=== PATIENT | male | born 1955 | race Caucasian/White ===

== ENCOUNTER 2019-08-07 11:18 | Emergency (ER) | payer BC ==
[~2019-08-07] VITALS: Ht 177.8 cm; Wt 150.0 kg
[~2019-08-07 11:18] MED LIST: AZIT-63 PO; CHOL50004 PO; FURO-150 PO; GLUC-219 PO; GLUC1CAP33 PO; MELA1TAB11 PO; SPIR25TA5 PO; UBID10CA4 PO
[2019-08-07 12:00] LABS: BASOPHILS # (AUTO) 0.1 X10'3 (0-0.2); BASOPHILS % (AUTO) 0.8 % (0-1); EOSINOPHILS # (AUTO) 0.3 X10'3 (0-0.9); EOSINOPHILS % (AUTO) 4.2 % (0-6); HEMATOCRIT 43.1 % (42.0-52.0); HEMOGLOBIN 14.9 g/dl (14.0-17.9); LYMPHOCYTES # (AUTO) 0.9 X10'3 (1.1-4.8); LYMPHOCYTES % (AUTO) 14.8 % (21-51); MEAN CORPUSCULAR HEMOGLOBIN 32.5 PG (27.0-31.0); MEAN CORPUSCULAR HGB CONC 34.5 g/dL (33.0-36.5); MEAN CORPUSCULAR VOLUME 94.3 FL (78-98); MEAN PLATELET VOLUME 8.6 FL (7.4-10.4); MONOCYTES # (AUTO) 0.9 X10'3 (0-0.9); MONOCYTES % (AUTO) 15.4 % (2-12); NEUTROPHILS % (AUTO) 64.8 % (42-75); PLATELET COUNT 141 X10'3 (140-440); RED BLOOD COUNT 4.57 X10'6 (4.70-6.10); WHITE BLOOD COUNT 6.1 X10'3 (4.5-11.0)
[2019-08-07 12:14] LABS: ALANINE AMINOTRANSFERASE 54 U/L (12-78); ALBUMIN 3.5 G/DL (3.4-5.0); ALKALINE PHOSPHATASE 189 IU/L (46-116); ANION GAP 8 (8-16); ASPARTATE AMINO TRANSFERASE 51 U/L (10-37); BILIRUBIN,TOTAL 1.4 MG/DL (0.1-1.0); BLOOD UREA NITROGEN 15 MG/DL (7-18); BUN/CREATININE RATIO 14.3 (5.4-32.0); CALCIUM 8.6 MG/DL (8.5-10.1); CHLORIDE 108 MMOL/L (99-107); CREATININE 1.05 MG/DL (0.60-1.10); GLUCOSE 139 MG/DL (70-104); POTASSIUM 3.8 MMOL/L (3.5-5.1); SODIUM 143 MMOL/L (135-145); TOTAL CARBON DIOXIDE 26.8 MMOL/L (24-32); TOTAL PROTEIN 6.9 G/DL (6.4-8.2); eGFR 71 ML/MIN
[2019-08-07] MEDS ORDERED: chlorthalidone 25mg tablet PO STA (12:17)
--- NOTE | 2019-08-07 12:19 | NUR ---
solar installer technician at bedside.
[2019-08-07] MEDS ORDERED: atenolol 50mg tablet PO ONE (12:20)
[2019-08-07 12:25] LABS: PLATELET ESTIMATE NORMAL; TOTAL CELLS COUNTED 100
[2019-08-07] MEDS ORDERED: CEPH500C5 PO (13:02)
[2019-08-07 13:43] VITALS: BP 149/91
== END 2019-08-07 13:30 | disposition home or self-care (01) ==
LOC: ER 11:19
DX: L03.116 Cellulitis of left lower limb (principal); M79.89 Other specified soft tissue disorders; I10 Essential (primary) hypertension; M19.90 Unspecified osteoarthritis, unspecified site; F17.200 Nicotine dependence, unspecified, uncomplicated; Z88.8 Allergy status to other drugs, medicaments and biological substances; Z79.2 Long term (current) use of antibiotics; Z79.899 Other long term (current) drug therapy
CPT/HCPCS: 36415; 80053; 84145; 85025; 93005; 93971; 99285

== ENCOUNTER 2022-03-12 11:13 | Inpatient (IN) | payer BC ==
[2022-03-07 12:24] LABS: BASOPHILS % (AUTO) 1.2 % (0-1); EOSINOPHILS # (AUTO) 0.1 X10'3 (0-0.9); EOSINOPHILS % (AUTO) 2.8 % (0-6); LYMPHOCYTES # (AUTO) 0.7 X10'3 (1.1-4.8); LYMPHOCYTES % (AUTO) 16.3 % (21-51); MEAN CORPUSCULAR HEMOGLOBIN 32.2 PG (27.0-31.0); MEAN CORPUSCULAR HGB CONC 34.2 g/dL (33.0-36.5); MEAN CORPUSCULAR VOLUME 94.1 FL (78-98); MEAN PLATELET VOLUME 8.6 FL (7.4-10.4); MONOCYTES # (AUTO) 0.5 X10'3 (0-0.9); MONOCYTES % (AUTO) 12.1 % (2-12); NEUTROPHILS # (AUTO) 2.7 X10'3 (1.8-7.7); NEUTROPHILS % (AUTO) 67.6 % (42-75); PRE OP HEMATOCRIT 43.5 % (42.0-52.0); PRE OP HEMOGLOBIN 14.9 g/dL (14.0-17.9); PRE OP PLATELET COUNT 143 X10'3 (140-440); RED BLOOD COUNT 4.62 X10'6 (4.70-6.10)
[2022-03-07 12:40] LABS: ALBUMIN 3.6 G/DL (3.4-5.0); ALBUMIN/GLOBULIN RATIO 1.1 (1.1-1.5); ALKALINE PHOSPHATASE 137 IU/L (46-116); BLOOD UREA NITROGEN 18 MG/DL (7-18); BUN/CREATININE RATIO 18.9 (5.4-32.0); CALCIUM 8.9 MG/DL (8.5-10.1); CHLORIDE 105 MMOL/L (99-107); CREATININE 0.95 MG/DL (0.60-1.10); PRE OP ALT 38 U/L (30-65); PRE OP ANION GAP 10 (8-16); PRE OP AST 40 U/L (10-37); PRE OP BILIRUB, TOTAL 1.6 MG/DL (0.0-1.0); PRE OP GLUCOSE 105 MG/DL (70-104); PRE OP POTASSIUM 3.8 MMOL/L (3.4-5.1); PRE OP SODIUM 141 MMOL/L (135-145); TOTAL CARBON DIOXIDE 26.2 MMOL/L (24-32); TOTAL PROTEIN 6.8 G/DL (6.4-8.2); eGFR 79 ML/MIN
[~2022-03-12] VITALS: Ht 177.8 cm; Wt 125.0 kg
[2022-03-12] VITALS (20 sets, daily range): BP systolic 110–145; BP diastolic 61–92
[~2022-03-12 11:13] MED LIST changes: +ATEN1TAB5 PO; -AZIT-63 PO; +AZIT-83 PO; +DOCUMENT DATE & TIME OF BETA-BLOCKER PO ONE; +POTA8CAP20 PO; +ceFAZolin inj. 2,000 MG in dextrose 5%-water 100 ML IV ONE; +famotidine 20mg tablet PO ONE; +ringers solution, lacted 1,000 ML IV SCH; +tranexamic acid inj. 1,000 MG in normal saline IV soln 100ML IV ONE; +vancomycin 1,500 MG in NS 300ml IV soln IV ONE
--- NOTE | 2022-03-12 12:00 | NUR ---
CSM: PULSES PRESENT. PATIENT USED THE MUPIROCIN CREAM ORDERED BUT DID NOT WATCH THE VIDEO. EDUCATED PATIENT ON THE USE OF THE INCENTIVE AND ITS IMPORTANCE.
[2022-03-12] MEDS ORDERED: sevoflurane 250ml liquid IH ONE (14:01)
[2022-03-12] MEDS ORDERED: FENTANYL CITRATE/PF 50 MCG/1 ML VIAL ONE (14:04)
[2022-03-12] MEDS ORDERED: MIDAZolam 1 MG/ML 5ML VIAL ONE (14:04)
[2022-03-12] MEDS ORDERED: ROPIVAcaine 0.5% (5mg/ml) 30ml vial ONE (14:07)
[2022-03-12] MEDS ORDERED: propofol inj 20 ML IV ONE (14:07)
[2022-03-12] MEDS ORDERED: vancomycin 1,000mg inj ONE (14:26)
[2022-03-12] MEDS ORDERED: ringers solution, lacted 1,000 ML IV SCH (15:55)
[2022-03-12] MEDS ORDERED: meperidine/PF 25mg/ml syringe IV PRN ×3 (15:55)
[2022-03-12] MEDS ORDERED: ondansetron/PF 4mg/2ml inj IV PRN ×2 (15:55→17:15)
[2022-03-12] MEDS ORDERED: morphine 4 MG/ML inj SYRINge IV PRN (15:55)
[2022-03-12] MEDS ORDERED: morphine 2 MG/ML inj. syringe IV PRN (15:55)
[2022-03-12] MEDS ORDERED: ROPIVAcaine 0.2% (10 MG/5 ML) BOLUS INJECTION INTERSCALE PRN (15:55)
[2022-03-12] MEDS ORDERED: proCHLORperazine 10 MG/2 ml inj IV PRN (15:55)
[2022-03-12] MEDS ORDERED: ROPIVAcaine 0.2%/PF PUMP/bolus 545 ML INTERSCALE SCH (16:30)
--- NOTE | 2022-03-12 16:58 | NUR ---
Received from OR via BED, accompanied by Anesthesiologist and report given by CHIDI Anesthesiologist. PATIENT WAKING UP, DENIES PAIN, V/S WNL, SCD ON, 20G TO LEFT FOREARM, RIGHT SHOULDER DRESSING C/D/I with POWDER PACK AND ARM SLING. ON Q PUMP CATHETER DRESSING C/D/I. Addendum: 03/12/22 at 1720 by Miguelito Lew RN Amended: Links added.
[2022-03-12] MEDS ORDERED: diphenhydrAMINE 25mg capsule PO PRN ×2 (17:15)
[2022-03-12] MEDS ORDERED: naloxone 0.4 mg/ml inj IV PRN (17:15)
[2022-03-12] MEDS ORDERED: HYDROmorphone 1 mg/ml syringe IV PRN (17:15)
[2022-03-12] MEDS ORDERED: acetaminophen 325mg tablet PO PRN (17:15)
[2022-03-12] MEDS ORDERED: oxyCODONE IR 5mg (immed. release) tablet PO PRN ×2 (17:15)
[2022-03-12] MEDS ORDERED: magnesium hydroxide 30ml (MOM) UD suspension PO PRN (17:15)
[2022-03-12] MEDS ORDERED: bisacodyl 10mg suppository rectal RC PRN (17:15)
[2022-03-12] MEDS ORDERED: HYDROmorphone inj. 0.5 MG/0.5 ML DISP.SYRIN IV PRN (17:15)
[2022-03-12] MEDS: potassium cl 20mEq in 1/2 NS 1,000 ML IV SCH (18:30)
--- NOTE | 2022-03-12 18:38 | NUR ---
PATIENT HAS MET ALL CRITERIA FOR TRANSFER TO THE SURGICAL FLOOR. VSS. DRESSINGS INTACT. BED LOW, CALL LIGHT PRESENT AND 2 RAILS UP. RN PRESENT TO ACCEPT CARE OF PATIENT AND REPORT HAS BEEN CALLED. ALL QUESTIONS ANSWERED TO ACCEPTING RN. Addendum: 03/12/22 at 1855 by Miguelito Lew RN Amended: Links added.
[2022-03-12] MEDS ORDERED: tranexamic acid inj. 1,250 MG in normal saline 100ml IV soln 87.5 ML IV ONE (20:30)
[2022-03-12] MEDS ORDERED: vancomycin 1,500 MG in NS 300ml IV soln IV ONE (20:40)
[2022-03-12] MEDS ORDERED: sennosides 8.6mg tablet PO SCH (21:00)
[2022-03-12] MEDS: potassium chloride 8mEq ER tablet PO SCH (21:15)
[2022-03-12] MEDS: gabapentin 300mg capsule PO SCH (21:15)
[2022-03-12] MEDS: acetaminophen 325mg tablet PO SCH (21:15)
[2022-03-12] MEDS ORDERED: vancomycin/NS 1 GM ADD-VANTAGE 250 ML IV ONE (22:00)
[2022-03-13] MEDS ORDERED: ceFAZolin/D5W- 1GM premix 50 ML IV SCH
[2022-03-13] MEDS: ceFAZolin inj. 3,000 MG in normal saline 100ml IV soln 100 ML IV SCH ×2 (00:30→07:20)
[2022-03-13] MEDS: potassium cl 20mEq in 1/2 NS 1,000 ML IV SCH (01:15)
[2022-03-13 02:00] VITALS: BP 121/68
[2022-03-13] MEDS: acetaminophen 325mg tablet PO SCH ×2 (02:00→07:21)
--- NOTE | 2022-03-13 06:37 | NUR ---
Patient in room [facility]. I have received report from carmel bradford and had the opportunity to ask questions and assume patient care.
[2022-03-13 06:58] VITALS: BP 122/70
[2022-03-13] MEDS: gabapentin 300mg capsule PO SCH (07:20)
[2022-03-13] MEDS: potassium chloride 8mEq ER tablet PO SCH (07:20)
[2022-03-13] MEDS ORDERED: atenolol 50mg tablet PO SCH (08:00)
[2022-03-13] MEDS ORDERED: chlorthalidone 25mg tablet PO SCH (08:00)
--- NOTE | 2022-03-13 08:10 | NUR ---
called pts to notify of dc, no answer. left ms for call back
[2022-03-13] MEDS ORDERED: aspirin 325mg tablet PO SCH (08:30)
--- NOTE | 2022-03-13 10:01 | NUR ---
Joint surgery consult: Pt s/p R shoulder surgery this admit per EMR. Pt/daughter seen by RD at bedside for written/verbal high protein diet ed w/ RD contact information provided. Pt reports follows "keto" diet at home but admits still eats CHO not true ketogenic diet. RD encouraged CHO intake in addition to additional proteins for wound healing; pt reports has protein drinks at home he can have. RD encouraged pt/daughter to contact dietitian's office if further nutrition questions/concerns. Addendum: 03/13/22 at [address] Amended: Links added.
--- NOTE | 2022-03-13 10:15 | NUR ---
PT DISCHARGED IN STABLE CONDITION. LEFT FACILITY IN PRIVATE VEHICLE WITH DAUGHTER. IV DC CANULA INTACT. ON Q ATTACHED, PT EDUCATED. ALL BELONGINGS IN HAND, PT HAS FOLLOW UP WITH DR ISRAEL. Addendum: 03/13/22 at 1117 by Franca Sears RN Amended: Links added.
[2022-03-13] MEDS ORDERED: celeCOXIB 100mg capsule PO SCH (20:00)
[2022-03-14] MEDS ORDERED: acetaminophen 325mg tablet PO PRN (17:15)
== END 2022-03-13 10:00 | disposition home or self-care (01) | DRG 483 ==
LOC: PAS IN 11:34 → SUR 3N 18:00
PROVIDERS: ADMIT Orthopaedic Surgery; ATTEND Orthopaedic Surgery
PROC: 3E0T3BZ Introduction of Anesthetic Agent into Peripheral Nerves and Plexi, Percutaneous Approach (ICD-10-PCS; 2022-03-12)
PROC: 3E0T33Z Introduction of Anti-inflammatory into Peripheral Nerves and Plexi, Percutaneous Approach (ICD-10-PCS; 2022-03-12)
PROC: 5A09357 Assistance with Respiratory Ventilation, Less than 24 Consecutive Hours, Continuous Positive Airway Pressure (ICD-10-PCS; 2022-03-12)
PROC: 0RRJ00Z Replacement of Right Shoulder Joint with Reverse Ball and Socket Synthetic Substitute, Open Approach (ICD-10-PCS; principal; 2022-03-12 14:01)
DX: M19.011 Primary osteoarthritis, right shoulder (principal); M75.101 Unspecified rotator cuff tear or rupture of right shoulder, not specified as traumatic; J44.9 Chronic obstructive pulmonary disease, unspecified; G47.30 Sleep apnea, unspecified; I10 Essential (primary) hypertension; E66.9 Obesity, unspecified; Z68.39 Body mass index [BMI] 39.0-39.9, adult
CPT/HCPCS: Z7506; Z7508; 36415; 73020; 80053; 82948; 85025; 87081; 97110; 97161; 97530; A4565; A4618; A7000; C1776; C9250; G0378; J0690; J2250; J2704; J2795; J3010; J3370; J3490; J7040; J7060; J7120

== ENCOUNTER 2022-03-15 19:17 | Emergency (ER) | payer BC ==
[~2022-03-15] VITALS: Ht 177.8 cm; Wt 104.8 kg
[~2022-03-15 19:17] MED LIST changes: -DOCUMENT DATE & TIME OF BETA-BLOCKER PO ONE; -ceFAZolin inj. 2,000 MG in dextrose 5%-water 100 ML IV ONE; -famotidine 20mg tablet PO ONE; -ringers solution, lacted 1,000 ML IV SCH; -tranexamic acid inj. 1,000 MG in normal saline IV soln 100ML IV ONE; -vancomycin 1,500 MG in NS 300ml IV soln IV ONE
[2022-03-15 19:20] VITALS: BP 110/66
== END 2022-03-15 22:03 | disposition left against medical advice (07) ==
LOC: ER 19:17
DX: M25.511 Pain in right shoulder (principal); Z53.21 Procedure and treatment not carried out due to patient leaving prior to being seen by health care provider

== ENCOUNTER 2023-02-11 06:23 | Inpatient (IN) | payer BC ==
[2023-02-05 15:08] LABS: BASOPHILS % (AUTO) 0.8 % (0-1); EOSINOPHILS # (AUTO) 0.1 X10'3 (0-0.9); EOSINOPHILS % (AUTO) 2.6 % (0-6); LYMPHOCYTES # (AUTO) 0.6 X10'3 (1.1-4.8); LYMPHOCYTES % (AUTO) 12.3 % (21-51); MEAN CORPUSCULAR HGB CONC 34.5 g/dL (33.0-36.5); MEAN CORPUSCULAR VOLUME 95.7 FL (78-98); MEAN PLATELET VOLUME 8.9 FL (7.4-10.4); MONOCYTES # (AUTO) 0.6 X10'3 (0-0.9); MONOCYTES % (AUTO) 11.7 % (2-12); NEUTROPHILS # (AUTO) 3.6 X10'3 (1.8-7.7); NEUTROPHILS % (AUTO) 72.6 % (42-75); PRE OP HEMATOCRIT 44.8 % (42.0-52.0); PRE OP HEMOGLOBIN 15.4 g/dL (14.0-17.9); PRE OP PLATELET COUNT 136 X10'3 (140-440); RED BLOOD COUNT 4.68 X10'6 (4.70-6.10)
[2023-02-05 15:09] LABS: ALBUMIN 3.6 G/DL (3.4-5.0); ALKALINE PHOSPHATASE 147 IU/L (46-116); BLOOD UREA NITROGEN 21 MG/DL (7-18); BUN/CREATININE RATIO 21.6 (10.0-20.0); CALCIUM 8.7 MG/DL (8.5-10.1); CHLORIDE 105 MMOL/L (99-107); CREATININE 0.97 MG/DL (0.60-1.10); PRE OP ALT 44 U/L (30-65); PRE OP ANION GAP 9 (8-16); PRE OP AST 49 U/L (10-37); PRE OP BILIRUB, TOTAL 1.6 MG/DL (0.0-1.0); PRE OP GLUCOSE 102 MG/DL (70-104); PRE OP POTASSIUM 3.9 MMOL/L (3.4-5.1); PRE OP SODIUM 141 MMOL/L (135-145); TOTAL CARBON DIOXIDE 27.5 MMOL/L (24-32); TOTAL PROTEIN 7.1 G/DL (6.4-8.2); eGFR 77 ML/MIN
[2023-02-11] VITALS (21 sets, daily range): BP systolic 93–153; BP diastolic 41–89; PULSE 52–76; RESP 13–22; TEMP 97.5–98.2; O2SAT 95–100
[~2023-02-11] VITALS: Ht 177.8 cm; Wt 134.0 kg
[~2023-02-11 06:23] MED LIST changes: -AZIT-83 PO; -CHOL50004 PO; +DOCUMENT DATE & TIME OF BETA-BLOCKER PO ONE; -FURO-150 PO; -GLUC-219 PO; -GLUC1CAP33 PO; -MELA1TAB11 PO; -SPIR25TA5 PO; -UBID10CA4 PO; +ceFAZolin inj. 3,000 MG in normal saline 100ml IV soln 100 ML IV ONE; +famotidine 20mg tablet PO ONE; +metoprolol tartrate 25mg tablet PO ONE; +ringers solution, lacted 1,000 ML IV SCH; +tranexamic acid inj. 1,000 MG in normal saline IV soln 100ML IV ONE; +vancomycin 1,500 MG in NS 300ml IV soln IV ONE
[2023-02-11] MEDS ORDERED: vancomycin 1,000mg inj ONE (07:23)
[2023-02-11] MEDS ORDERED: epiNEPHrine 1 mg/ml inj ONE (07:51)
[2023-02-11] MEDS ORDERED: morphine /PF 1mg/ml 10ml inj. ONE (07:51)
[2023-02-11] MEDS ORDERED: ROPIVAcaine 0.5% (5mg/ml) 30ml vial ONE ×3 (07:52→12:35)
[2023-02-11] MEDS ORDERED: tetracaine 1% (10mg/ml) pres. free inj. ONE (08:15)
[2023-02-11] MEDS ORDERED: MIDAZolam 1mg/ml 10ml vial ONE (08:19)
[2023-02-11] MEDS ORDERED: fentaNYL/PF 50MCG/1 ML 2ML syringe ONE (08:19)
[2023-02-11] MEDS ORDERED: ondansetron/PF 4mg/2ml inj IV PRN ×2 (08:25→13:20)
[2023-02-11] MEDS ORDERED: ROPIVAcaine 0.2% (10 MG/5 ML) BOLUS INJECTION ADDCANAL PRN (08:25)
[2023-02-11] MEDS ORDERED: labetalol 20mg/4ml (5mg/ml) syringe IV PRN (08:25)
[2023-02-11] MEDS ORDERED: morphine 4 MG/ML inj SYRINge IV PRN (08:25)
[2023-02-11] MEDS ORDERED: morphine 2 MG/ML inj. syringe IV PRN (08:25)
[2023-02-11] MEDS ORDERED: ringers solution, lacted 1,000 ML IV SCH (08:25)
[2023-02-11] MEDS ORDERED: fentaNYL/PF 50MCG/1 ML 2ML syringe IV PRN ×2 (08:25)
[2023-02-11] MEDS ORDERED: hydrALAZINE 20mg/ml inj. IV PRN (08:25)
[2023-02-11] MEDS ORDERED: BUPIVAcaine/dex-water/PF 7.5 mg/ml 2ml ampul ONE (08:50)
[2023-02-11] MEDS ORDERED: ePHEDrine 50MG/ML INJ. ONE (09:11)
[2023-02-11] MEDS ORDERED: albumin (Human) 5% 250ml 250 ML IV ONE ×3 (09:29→11:56)
[2023-02-11] MEDS ORDERED: morphine 10mg/ml inj. IM ONE ×2 (09:45→12:04)
[2023-02-11] MEDS ORDERED: epiNEPHrine 1 mg/ml inj SQ ONE ×2 (09:50→11:41)
[2023-02-11] MEDS ORDERED: ROPIVAcaine 0.5% (5mg/ml) 30ml vial IJ ONE ×2 (09:51→11:41)
[2023-02-11] MEDS ORDERED: MIDAZolam 1 MG/ML 5ML VIAL ONE (11:08)
[2023-02-11] MEDS ORDERED: propofol inj 20 ML IV ONE (11:17)
[2023-02-11 13:19] LABS: ISTAT ANION GAP 12 (8-12); ISTAT BUN 16 mg/dL (7-18); ISTAT CL 103 mmol/L (99-107); ISTAT CREATININE 0.8 mg/dL (0.8-1.3); ISTAT GLUCOSE 106 mg/dL (70-104); ISTAT HGB 12.6 g/dl (14.0-17.9); ISTAT Hct 37 %PCV (42-52); ISTAT IONIZED CALCIUM 1.15 mmol/L (1.03-1.32); ISTAT K 3.8 mmol/L (3.5-5.1); ISTAT NA 142 mmol/L (135-145); ISTAT TOTAL CO2 27 mmol/L (24-32); ISTAT eGFR > 90 ML/MIN
[2023-02-11] MEDS ORDERED: magnesium hydroxide 30ml (MOM) UD suspension PO PRN (13:20)
[2023-02-11] MEDS ORDERED: bisacodyl 10mg suppository rectal RC PRN (13:20)
[2023-02-11] MEDS ORDERED: oxyCODONE IR 5mg (immed. release) tablet PO PRN (13:20)
[2023-02-11] MEDS ORDERED: acetaminophen 325mg tablet PO PRN (13:20)
[2023-02-11] MEDS ORDERED: diphenhydrAMINE 25mg capsule PO PRN ×2 (13:20)
[2023-02-11] MEDS: potassium Cl 20mEq in NS 1,000 ML IV SCH ×2 (13:20→21:20)
[2023-02-11] MEDS ORDERED: naloxone 0.4 mg/ml inj IV PRN (13:20)
[2023-02-11] MEDS ORDERED: tranexamic acid inj. 1,000 MG in normal saline 100ml IV soln 100 ML IV ONE (13:20)
[2023-02-11] MEDS ORDERED: tranexamic acid inj. 1,000 MG in normal saline 100ml IV soln 90 ML IV ONE (13:50)
[2023-02-11] MEDS: ROPIVAcaine 0.2%/PF PUMP/bolus 545 ML ADDCANAL SCH (13:58)
[2023-02-11] MEDS: HYDROmorphone 1 mg/ml syringe IV PRN ×2 (16:47→22:47)
[2023-02-11] MEDS: oxyCODONE IR 5mg (immed. release) tablet PO PRN (18:52)
[2023-02-11 18:59] LABS: BASOPHILS % (AUTO) 0.4 % (0-1); EOSINOPHILS % (AUTO) 0.7 % (0-6); HEMATOCRIT 37.7 % (42.0-52.0); HEMOGLOBIN 12.9 g/dl (14.0-17.9); LYMPHOCYTES # (AUTO) 0.2 X10'3 (1.1-4.8); LYMPHOCYTES % (AUTO) 4.1 % (21-51); MEAN CORPUSCULAR HEMOGLOBIN 32.7 PG (27.0-31.0); MEAN CORPUSCULAR HGB CONC 34.2 g/dL (33.0-36.5); MEAN CORPUSCULAR VOLUME 95.5 FL (78-98); MEAN PLATELET VOLUME 8.5 FL (7.4-10.4); MONOCYTES # (AUTO) 0.5 X10'3 (0-0.9); MONOCYTES % (AUTO) 8.6 % (2-12); NEUTROPHILS # (AUTO) 5.2 X10'3 (1.8-7.7); NEUTROPHILS % (AUTO) 86.2 % (42-75); PLATELET COUNT 87 X10'3 (140-440); RED BLOOD COUNT 3.95 X10'6 (4.70-6.10); WHITE BLOOD COUNT 6.1 X10'3 (4.5-11.0)
[2023-02-11 19:02] LABS: APTT 29 SECONDS (22-32); INR 1.2 INR; PROTHROMBIN TIME 12.6 SECONDS (9.0-12.0)
[2023-02-11] MEDS: acetaminophen 325mg tablet PO SCH (19:43)
[2023-02-11] MEDS: ceFAZolin/D5W- 1GM premix 50 ML IV SCH (19:46)
[2023-02-11] MEDS: gabapentin 300mg capsule PO SCH (19:53)
[2023-02-11] MEDS: sennosides 8.6mg tablet PO SCH (19:56)
[2023-02-11] MEDS ORDERED: vancomycin/NS 1 GM ADD-VANTAGE 250 ML IV SCH (20:00)
[2023-02-12] VITALS (8 sets, daily range): BP systolic 117–161; BP diastolic 65–101; PULSE 63–89; RESP 16–20; TEMP 97.1–99; O2SAT 94–95
[2023-02-12] MEDS: ceFAZolin/D5W- 1GM premix 50 ML IV SCH (01:59)
[2023-02-12] MEDS: potassium Cl 20mEq in NS 1,000 ML IV SCH ×3 (02:00→19:16)
[2023-02-12] MEDS: acetaminophen 325mg tablet PO SCH ×4 (02:04→20:05)
[2023-02-12] MEDS: oxyCODONE IR 5mg (immed. release) tablet PO PRN ×3 (03:23→20:04)
[2023-02-12] MEDS: HYDROmorphone 1 mg/ml syringe IV PRN (06:00)
[2023-02-12] MEDS: enoxaparin 40mg/0.4ml syringe SQ SCH (08:00)
[2023-02-12] MEDS: gabapentin 300mg capsule PO SCH ×3 (09:00→20:05)
[2023-02-12] MEDS: atenolol 50mg tablet PO SCH (09:01)
[2023-02-12] MEDS: chlorthalidone 25mg tablet PO SCH (09:01)
[2023-02-12] MEDS: potassium chloride 8mEq ER tablet PO SCH ×3 (09:05→20:05)
[2023-02-12 11:34] LABS: BASOPHILS % (AUTO) 0.4 % (0-1); EOSINOPHILS % (AUTO) 0.7 % (0-6); HEMATOCRIT 37.9 % (42.0-52.0); HEMOGLOBIN 12.9 g/dl (14.0-17.9); LYMPHOCYTES # (AUTO) 0.3 X10'3 (1.1-4.8); LYMPHOCYTES % (AUTO) 5.1 % (21-51); MEAN CORPUSCULAR HEMOGLOBIN 32.6 PG (27.0-31.0); MEAN PLATELET VOLUME 8.4 FL (7.4-10.4); MONOCYTES # (AUTO) 0.8 X10'3 (0-0.9); MONOCYTES % (AUTO) 12.3 % (2-12); NEUTROPHILS # (AUTO) 5.3 X10'3 (1.8-7.7); NEUTROPHILS % (AUTO) 81.5 % (42-75); PLATELET COUNT 94 X10'3 (140-440); RED BLOOD COUNT 3.95 X10'6 (4.70-6.10); RED CELL DISTRIBUTION WIDTH 12.8 % (11.5-14.5); WHITE BLOOD COUNT 6.5 X10'3 (4.5-11.0)
[2023-02-12 11:36] LABS: ALBUMIN 3.2 G/DL (3.4-5.0); ANION GAP 8 (8-16); BLOOD UREA NITROGEN 12 MG/DL (7-18); BUN/CREATININE RATIO 14.1 (10.0-20.0); CALCIUM 8.1 MG/DL (8.5-10.1); CHLORIDE 103 MMOL/L (99-107); CREATININE 0.85 MG/DL (0.60-1.10); GLUCOSE 138 MG/DL (70-104); POTASSIUM 3.7 MMOL/L (3.5-5.1); SODIUM 138 MMOL/L (135-145); TOTAL CARBON DIOXIDE 27.5 MMOL/L (24-32); eCRCL 87 ML/MIN; eGFR 90 ML/MIN
[2023-02-12] MEDS: HYDROmorphone inj. 0.5 MG/0.5 ML DISP.SYRIN IV PRN (12:33)
[2023-02-12] MEDS: celeCOXIB 100mg capsule PO SCH (20:05)
[2023-02-12] MEDS: sennosides 8.6mg tablet PO SCH (20:06)
[2023-02-13] MEDS: acetaminophen 325mg tablet PO SCH ×2 (01:23→09:20)
[2023-02-13] MEDS: potassium Cl 20mEq in NS 1,000 ML IV SCH (05:20)
[2023-02-13] MEDS: oxyCODONE IR 5mg (immed. release) tablet PO PRN ×2 (05:36→20:57)
[2023-02-13 06:00] VITALS: BP 114/71; PULSE 70; RESP 15; TEMP 97.7; O2SAT 94
[2023-02-13 08:00] VITALS: RESP 16; O2SAT 95
[2023-02-13] MEDS: enoxaparin 40mg/0.4ml syringe SQ SCH (08:00)
[2023-02-13] MEDS: atenolol 50mg tablet PO SCH (08:00)
[2023-02-13] MEDS: HYDROmorphone inj. 0.5 MG/0.5 ML DISP.SYRIN IV PRN (08:15)
[2023-02-13] MEDS: ROPIVAcaine 0.2%/PF PUMP/bolus 545 ML ADDCANAL SCH (08:25)
[2023-02-13] MEDS: potassium chloride 8mEq ER tablet PO SCH ×3 (09:18→20:57)
[2023-02-13] MEDS: celeCOXIB 100mg capsule PO SCH ×2 (09:18→20:57)
[2023-02-13] MEDS: gabapentin 300mg capsule PO SCH ×3 (09:19→20:57)
[2023-02-13] MEDS: chlorthalidone 25mg tablet PO SCH (09:19)
[2023-02-13 10:00] VITALS: BP 155/85; PULSE 66; RESP 15; TEMP 97; O2SAT 95
[2023-02-13] MEDS ORDERED: acetaminophen 325mg tablet PO PRN (13:20)
[2023-02-13 18:00] VITALS: BP 124/68; PULSE 71; RESP 18; TEMP 99.8; O2SAT 95
[2023-02-13 20:00] VITALS: RESP 18; O2SAT 94
[2023-02-13] MEDS: sennosides 8.6mg tablet PO SCH (20:58)
[2023-02-13 22:00] VITALS: BP 147/85; PULSE 89; RESP 18; TEMP 97.9; O2SAT 94
[2023-02-14] MEDS: oxyCODONE IR 5mg (immed. release) tablet PO PRN ×2 (04:36→14:30)
[2023-02-14 06:00] VITALS: BP 142/65; PULSE 65; RESP 16; TEMP 98.1; O2SAT 98
[2023-02-14] MEDS: enoxaparin 40mg/0.4ml syringe SQ SCH (08:00)
[2023-02-14 08:40] VITALS: RESP 16; O2SAT 98
[2023-02-14] MEDS: celeCOXIB 100mg capsule PO SCH (09:40)
[2023-02-14] MEDS: chlorthalidone 25mg tablet PO SCH (09:40)
[2023-02-14] MEDS: gabapentin 300mg capsule PO SCH ×2 (09:41→14:31)
[2023-02-14] MEDS: atenolol 50mg tablet PO SCH (09:41)
[2023-02-14] MEDS: potassium chloride 8mEq ER tablet PO SCH ×2 (09:41→14:30)
[2023-02-14 10:00] VITALS: BP 124/80; PULSE 99; RESP 20; TEMP 98.8; O2SAT 95
== END 2023-02-14 14:53 | disposition home or self-care (01) | DRG 470 ==
LOC: PAS IN 06:23 → UNDOADMIN 06:23 → EDSTATUS 08:30 → PAS IN 13:23 → ORTHO 4S 14:55
PROVIDERS: ADMIT Orthopaedic Surgery; ATTEND Orthopaedic Surgery
PROC: 3E0T3BZ Introduction of Anesthetic Agent into Peripheral Nerves and Plexi, Percutaneous Approach (ICD-10-PCS; 2023-02-11)
PROC: 0SRC0J9 Replacement of Right Knee Joint with Synthetic Substitute, Cemented, Open Approach (ICD-10-PCS; principal; 2023-02-11 08:50)
DX: M17.11 Unilateral primary osteoarthritis, right knee (principal); D62 Acute posthemorrhagic anemia; M25.761 Osteophyte, right knee
CPT/HCPCS: Z7506; Z7508; 36415; 73560; 80047; 80048; 80053; 82948; 85025; 85610; 85730; 87081; 97110; 97116; 97162; 97530; A4215; A6253; A6446; A6449; A7000; C1713; C1758; C1776; C9250; G0378; J0171; J0690; J1170; J2250; J2274; J2704; J2795; J3010; J3370; J3480; J3490; J7030; J7120; P9045; Q0163